=== PATIENT | female | born 1960 | race Caucasian/White ===

== ENCOUNTER 2020-02-19 18:31 | Observation (INO) | payer OTHER ==
[~2020-02-19] VITALS: Ht 160 cm; Wt 72.6 kg
[2020-02-19 19:27] LABS: HEMOGLOBIN 13.8 gm/dl (12.3-15.3); RED BLOOD COUNT 4.58 M/UL (4.00-5.10); WHITE BLOOD COUNT 5.5 K/UL (4.5-11.0)
[2020-02-19 19:42] LABS: BUN/CREATININE RATIO 10 (0-10)
== END 2020-02-21 15:26 | disposition home or self-care (01) ==
LOC: ER1 18:31 → M/S 21:00 → CDU 21:00 → M/S 22:41
PROVIDERS: Physician Assistant; ADMIT Internal Medicine
DX: R55 Syncope and collapse (principal); F32.9 Major depressive disorder, single episode, unspecified; F17.210 Nicotine dependence, cigarettes, uncomplicated; E03.9 Hypothyroidism, unspecified; Z20.822 Contact with and (suspected) exposure to COVID-19
CPT/HCPCS: ECHO; 70450; 70551; 71045; 72141; 80053; 80307; 81001; 82550; 82553; 83874; 84439; 84443; 84484; 85025; 93005; 93270; 93306; 93880; 99285; G0378; U0002